=== PATIENT | female | born 1960 | race Caucasian/White ===

== ENCOUNTER 2018-07-30 11:43 | Emergency (ER) | payer MEDICARE ==
[~2018-07-30] VITALS: Ht 165.1 cm; Wt 82.0 kg
[2018-07-30 20:10] LABS: BASOPHILS % 0.4 % (0.0-2.0); EOSINOPHILS % 1.5 % (0.0-5.0); HEMATOCRIT. 43.4 % (36.0-48.0); HEMOGLOBIN. 14.8 g/dL (12.0-16.0); LYMPHOCYTES % 29.4 % (20.0-50.0); MEAN CORPUSCULAR HEMOGLOBIN 31.1 pg (28.0-32.0); MEAN CORPUSCULAR VOLUME 91.2 fL (81.0-99.0); MEAN PLATELET VOLUME 9.4 fl (7.4-10.4); MONOCYTES % 7.1 % (2.0-8.0); NEUTROPHILS % 61.6 % (40.0-76.0); PLATELET 197 x1000/uL (130-400); RED BLOOD CELL COUNT 4.76 mill/uL (4.2-5.4); RED CELL DISTRIBUTION WIDTH 12.4 % (11.6-14.6)
[2018-07-30 20:13] LABS: CHLORIDE 98 mEq/L (98-107)
[2018-07-30 20:24] LABS: CREATINE KINASE 58 IU/L (26-192)
[2018-07-30] MEDS ORDERED: KETOROLAC 15MG/ML VIAL IV ONE ×2 (21:00→21:30)
[2018-07-30] MEDS ORDERED: DIAZEPAM 5 MG TABLET PO ONE ×2 (21:00→21:30)
[2018-07-30 21:42] LABS: CLARITY URINE CLEAR (CLEAR); COLOR URINE YELLOW (YELLOW); KETONES URINE TRACE (NEGATIVE); LEUKOCYTE ESTERASE URINE NEGATIVE (NEGATIVE); NITRITE URINE NEGATIVE (NEGATIVE); OCCULT BLOOD URINE NEGATIVE (NEGATIVE); PROTEIN URINE NEGATIVE (NEGATIVE); SPECIFIC GRAVITY URINE 1.038 (1.005-1.030); UROBILINOGEN URINE 0.2 E.U./dL (0.2-1.0)
[2018-07-31 00:08] VITALS: BP 170/90
== END 2018-07-31 00:12 | disposition home or self-care (01) ==
LOC: ER 11:43
DX: M50.33 Other cervical disc degeneration, cervicothoracic region (principal); M79.10 Myalgia, unspecified site; E11.9 Type 2 diabetes mellitus without complications; I10 Essential (primary) hypertension
CPT/HCPCS: 36415; 71045; 72125; 80053; 81003; 82550; 85025; 93005; 96374; 99285; J1885